=== PATIENT | female | born 1940 | race Caucasian/White ===

== ENCOUNTER 2020-01-12 20:40 | Emergency (ER) | payer BC ==
[~2020-01-12] VITALS: Ht 152.4 cm; Wt 53.0 kg
[~2020-01-12 20:40] MED LIST: CELE-193 PO; ESTR0.3T10 PO; HYDR-3965 PO; HYDR200T84 PO; ONDA8TAB9 PO; calcium chloride 100 MG/1 ML inj IV ONE; dextrose 50%-water 50ml dispensing syringe IV ONE; epiNEPHrine 0.1mg/ml 10ml syringe ONE; etomidate 2mg/ml inj. ONE; rocuronium 10mg/ml inj IV ONE; sod chloride 0.9% 10ml flush syringe IV ONE; sodium bicarbonate (8.4%) 1 mEq/ml syringe ONE
[2020-01-12] MEDS ORDERED: midazolam 100mg in NS 100ml 100 ML IV SCH (20:50)
[2020-01-12] MEDS ORDERED: DOBUTamine-DoBUTrex 500mg/D5W 250 ML IV SCH (21:05)
[2020-01-12 21:07] VITALS: BP 94/61
[2020-01-12 21:31] LABS: PARTIAL THROMBOPLASTIN TIME 35 SECONDS (22-32)
[2020-01-12 21:36] LABS: EOSINOPHILS % (AUTO) 0 % (0-6); HEMOGLOBIN 7.4 g/dl (12.0-16.0); MEAN CORPUSCULAR HGB CONC 31.1 g/dL (33.0-36.5); RED BLOOD COUNT 2.85 X10'6 (4.20-5.60)
[2020-01-12 21:37] LABS: HEMATOCRIT 23.8 % (35.0-45.0); MEAN CORPUSCULAR VOLUME 83.5 FL (78-98); MEAN PLATELET VOLUME 10.6 FL (7.4-10.4); RED CELL DISTRIBUTION WIDTH 24.7 % (11.5-14.5)
[2020-01-12 21:42] LABS: PLATELET COUNT 34 X10'3 (140-440)
[2020-01-12 21:51] LABS: ALANINE AMINOTRANSFERASE 60 U/L (12-78); ALBUMIN/GLOBULIN RATIO 0.5 (1.1-1.5); ALKALINE PHOSPHATASE 263 IU/L (46-116); ANION GAP 11 (8-16); ASPARTATE AMINO TRANSFERASE 91 U/L (10-37); BILIRUBIN,TOTAL 1.9 MG/DL (0.1-1.0); BLOOD UREA NITROGEN 132 MG/DL (7-18); BUN/CREATININE RATIO 70.6 (6.6-38.0); CHLORIDE 112 MMOL/L (99-107); CREATININE 1.87 MG/DL (0.40-0.90); POTASSIUM 5.3 MMOL/L (3.5-5.1); SODIUM 144 MMOL/L (135-145); TOTAL CARBON DIOXIDE 21.5 MMOL/L (24-32); TOTAL PROTEIN 6.3 G/DL (6.4-8.2); eGFR 26 ML/MIN
--- NOTE | 2020-01-12 21:57 | NUR ---
Patient cleared for release to mortuary by [employer].
[2020-01-12 22:02] LABS: GLUCOSE 93 MG/DL (70-104)
--- NOTE | 2020-01-12 22:04 | NUR ---
[facility] donor network clears patient for release to mortuary with reference number [id number]
[2020-01-12 22:24] LABS: BASOPHILS % (AUTO) 0.1 % (0-1); LYMPHOCYTES % (AUTO) 4.8 % (21-51); MONOCYTES % (AUTO) 5.8 % (2-12); NEUTROPHILS % (AUTO) 89.3 % (42-75)
[2020-01-12 22:25] LABS: LYMPHOCYTES # (AUTO) 0.2 X10'3 (1.1-4.8); MONOCYTES # (AUTO) 0.3 X10'3 (0-0.9); NEUTROPHILS # (AUTO) 4.6 X10'3 (1.8-7.7)
[2020-01-12 22:27] LABS: ANISOCYTOSIS 3+; NUCLEATED RED BLOOD CELLS 9 /100WBC (0-0); PLATELET ESTIMATE DECREASED; TOTAL CELLS COUNTED 100
[2020-01-12 22:28] LABS: GIANT PLATELET FEW; SCHISTOCYTES FEW; TARGET CELLS FEW
[2020-01-12 22:29] LABS: LARGE PLATELETS FEW
--- NOTE | 2020-01-12 22:38 | NUR ---
At 2107 while central line was being placed by Dr. Smith, it was discovered that the patient's heart was no longer beating. Last BP was at 2106 at 94/61. CPR initiated. Please see code sheet for details.
--- NOTE | 2020-01-12 22:44 | NUR ---
spoke with reggie/sebastien name Gregg, will be picking up patient per next of kin request
== END 2020-01-13 02:21 | disposition expired ==
LOC: ER 20:40
DX: I46.9 Cardiac arrest, cause unspecified (principal); R62.7 Adult failure to thrive; J44.9 Chronic obstructive pulmonary disease, unspecified; I48.91 Unspecified atrial fibrillation; M06.9 Rheumatoid arthritis, unspecified; Z90.49 Acquired absence of other specified parts of digestive tract; Z90.710 Acquired absence of both cervix and uterus; Z98.890 Other specified postprocedural states; Z88.5 Allergy status to narcotic agent; Z88.0 Allergy status to penicillin; Z79.899 Other long term (current) drug therapy; Z68.22 Body mass index [BMI] 22.0-22.9, adult
CPT/HCPCS: 31500; 36415; 36556; 80053; 82948; 83605; 84145; 84484; 85025; 85610; 85730; 87040; 92950; 99291; J0171; 94002; 94760